=== PATIENT | female | born 1935 | race Two or more races ===

== ENCOUNTER → 2024-06-09 | Outpatient (CLI) | payer MEDICARE, SELFPAY ==
[2024-06-09 12:57] LABS: Glucose Estimated Average 120 mg/dL (80-131); Hemoglobin A1C 5.8 % Hgb (4.8-6.0)
[2024-06-09 13:08] LABS: Thyroid Stimulating Hormone 3.98 uIU/mL (0.55-4.78)
== END | disposition home or self-care (01) ==
LOC: COPL 11:58
PROVIDERS: PCP Internal Medicine; Referring Provider Internal Medicine; Visit Provider Internal Medicine
DX: E03.9 Hypothyroidism, unspecified (principal); E11.9 Type 2 diabetes mellitus without complications
CPT/HCPCS: 36415; 83036; 84443

== ENCOUNTER 2024-07-22 09:47 | Emergency (ER) | payer MEDICARE, SELFPAY ==
[2024-07-22 10:03] VITALS: BP 171/65; PULSE 63; RESP 16; TEMP 36.7; O2SAT 100; BMI 18.8
--- NOTE | 2024-07-22 10:05 | XR_ITS ---
Examination: Abdomen sonogram, Limited Date and time of exam: July 22, 2024 1155 hours INDICATIONS: Onset right upper abdominal pain beginning one week ago Technique: Real-time burks scale transabdominal sonographic images of the upper abdomen obtained. Findings: Normal gallbladder Normal common bile duct 0.1 cm Pancreatic head 1.1 cm Liver 11.3 cm fatty infiltration irregular contour no focal liver lesions Normal hepatopedal portal venous flow Patent IVC IMPRESSION: Normal gallbladder Primary hepatocellular disease fatty liver
--- NOTE | 2024-07-22 10:05 | EKG_ITS ---
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
--- NOTE | 2024-07-22 10:31 | PC.NURSE ---
Pt coming in from ED lobby with c/o RUQ abd pain with left lower and upper ABD pain associated with nausea x1 week. Pt denies any vomiting with reports decreased appetite. Pt laying on bed, A&Ox4, GCS 15. Pt connected to monitors at this time.
[2024-07-22 10:46] LABS: Basophils % (Auto) 1 % (0-2.5); Eosinophils # (Auto) 0.1 Thou/mm3 (0.0-0.5); Eosinophils % (Auto) 1 % (0-10); Hematocrit 34.5 % (36.0-46.0); Hemoglobin 11.7 g/dL (12.0-16.0); Immature Granulocytes % (Auto) 0 % (0-0); Immature Granulocytes Auto 0.02 Thou/mm3 (0.00-0.00); Lymphocytes # (Auto) 1.5 Thou/mm3 (1.0-4.8); Lymphocytes % (Auto) 30 % (10-50); Mean Corpuscular HGB Conc 33.9 g/dl (31.0-37.0); Mean Corpuscular Hemoglobin 30.8 pg (25.0-35.0); Mean Corpuscular Volume 91 fL (80-100); Monocytes # (Auto) 0.5 Thou/mm3 (0.0-0.8); Monocytes % (Auto) 10 % (0-12); Neutrophils # (Auto) 2.9 Thou/mm3 (1.8-7.7); Neutrophils % (Auto) 58 % (37-80); Nucleated Red Blood Cell % 0 /100 WBC (0); Platelet Count 163 Thou/mm3 (140-440); RDW Standard Deviation 48.4 fL (36.4-46.3); White Blood Count 4.9 Thou/mm3 (3.6-11.0)
[2024-07-22 11:04] VITALS: BP 153/69; PULSE 62; RESP 15; TEMP 36.8; O2SAT 100
[2024-07-22 11:13] LABS: Alanine Aminotransferase 28 U/L (10-49); Albumin, Serum 4.6 gm/dL (3.4-4.8); Albumin/Globulin Ratio 1.4 (1.2-2.2); Alkaline Phosphatase 90 U/L (46-116); Anion Gap 7 (7-16); Aspartate Amino Transferase 34 U/L (0-34); BUN/Creatinine Ratio 26 Ratio (12-20); Bilirubin,Total 0.6 mg/dL (0.3-1.2); Blood Urea Nitrogen 26 mg/dL (9-23); Calcium 9.9 mg/dL (8.3-10.6); Calcium (Corrected) 9.9 mg/dL (8.5-10.1); Carbon Dioxide 25.9 mMol/L (20.0-31.0); Chloride 98 mMol/L (98-107); Estimated Creatinine Clearance 25.5 mL/min (>60); Globulin 3.4 gm/dL (2.3-3.5); Glucose 97 mg/dL (74-106); Lipase 48 U/L (12-53); Osmolality,Calculated 267 (275-295); Potassium 4.4 mMol/L (3.4-5.1); Procalcitonin 0.38 ng/ml (0.0-0.49); Sodium 131 mMol/L (136-145); Troponin I < 0.020 ng/mL (0.0-0.045); eGFR 54 See Note
--- NOTE | 2024-07-22 11:19 | PD.EDRME ---
Rapid Medical Screening Exam RME Arrival date/time: 07/22/24 09:47 Chief Complaint: Abdominal Pain Time Seen by Provider: 07/22/24 09:48 Vital signs: Vital Signs Temperature 98.1 F 07/22/24 10:03 Pulse Rate 63 07/22/24 10:03 Respiratory Rate 16 07/22/24 10:03 Blood Pressure 171/65 H 07/22/24 10:03 Pulse Oximetry (%) 100 07/22/24 10:03 Oxygen Delivery Method Room Air 07/22/24 10:03
--- NOTE | 2024-07-22 11:36 | PD.EDABDPN ---
ED Abdominal Pain RME/HPI General Chief Complaint: Abdominal Pain Stated complaint: RUQ ABD PAIN, NAUSEA, FEVER Time seen by provider: 07/22/24 09:48 Arrival date/time: 07/22/24 09:47 RME / HPI RME / HPI narrative: 07/22/24 09:47 DR. GÓMEZ MAIN ED EVALUATION: 89 year old female presents to the ED for evaluation of abdominal pain beginning last night at 09:30pm. Described as colicky in sensation that is located most to the right upper quadrant, rating as moderate-severe. Accompanied by nausea. Denies fevers, blood in stool, diarrhea, constipation, or urinary symptoms. No known modifying factors reported. Related Data Home Medications ?Medication ?Instructions ?Recorded ?Confirmed nebivolol 10 mg tablet (Bystolic) 10 mg PO QDAY 03/21/19 07/22/24 amlodipine 2.5 mg tablet 2.5 mg PO QDAY 10/28/19 07/22/24 fluticasone 250 mcg-salmeterol 50 1 inh inhalation QDAY 10/28/19 07/22/24 mcg/dose blistr powdr for inhalation (Wixela Inhub) gabapentin 100 mg capsule 100 mg PO QDAY 10/28/19 07/22/24 omeprazole 20 mg capsule,delayed 20 mg PO QDAY 10/28/19 07/22/24 release budesonide-formoterol HFA 80 1 inh inhalation BID 06/11/22 07/22/24 mcg-4.5 mcg/actuation aerosol inhaler (Symbicort) famotidine 20 mg tablet (Pepcid) 20 mg PO QDAY 06/11/22 07/22/24 hydrocortisone 1 % topical cream 1 applic topical BID PRN Itching 06/11/22 07/22/24 (Preparation H Hydrocortisone) levothyroxine 25 mcg tablet 25 mcg PO QDAY 07/22/24 07/22/24 naltrexone 1.5 mg capsule 2 mg PO QPM 07/22/24 07/22/24 Previous Rx's ?Medication ?Instructions ?Recorded pantoprazole 40 mg tablet,delayed 40 mg PO QDAY #30 tabs 10/28/19 release (Protonix) Allergies Allergy/AdvReac Type Severity Reaction Status Date / Time Penicillins Allergy Severe PATIENT Verified 07/22/24 14:49 DOEN'T KNOW Sulfa (Sulfonamide Allergy Severe Rash Verified 07/22/24 14:49 Antibiotics) aspirin Allergy Verified 07/22/24 14:49 Review of Systems Review of Systems Narrative Review of Systems: Constitutional: DENIES; Fevers Eyes: DENIES; Loss of vision Head/Ear/Nose: DENIES; Loss of hearing Throat: DENIES; Dysphagia Cardiovascular: DENIES; Chest pain, dyspnea or syncope Respiratory: DENIES; Shortness of breath Gastrointestinal: SEE HPI +abd pain, nausea DENIES; Rectal bleeding or melena. Genitourinary: DENIES; Dysuria (painful or difficult urination) Musculoskeletal: DENIES; Arthralgia (pain in a joint),; Skin: DENIES; Rash Neurological: DENIES; Loss of function or movement Psychiatric: DENIES; recent major life stressor, emotional problem, illicit drug use or abuse Endocrinology: DENIES; Weight change Hematologic/Lymphatic: DENIES; Abnormal bruising Allergic/Immunologic: DENIES; Urticaria (hives) Past Medical History Past Medical History CARDIAC: Positive Cardiac Disorders and Hypertension RESPIRATORY: Positive Asthma GASTROINTESTINAL: Positive Gastroesophageal Reflux Disease GENITOURINARY: Positive Genitourinary Disorders (Nocturia (over active bladder)) MUSCULOSKELETAL: Positive Musculoskeletal Disorders (spinal stenosis) ENDOCRINE: Positive Endocrine Disorders and Hypothyroidism Surgical History SURGICAL: Positive Joint Replacement, Knee Sx (right& left knee,05/2009 foraminotomy decompression l4-l5 08/2015) and of Back Surgery (laminectomy Cervical,4,5,6, 05/2014) Social History SMOKING STATUS: Never smoker SUBSTANCE USE: does not use ED Exam Narrative Physical exam: Physical Exam: General: The vital signs were reviewed. Small stature female the patient is non-toxic, in no apparent distress and appears healthy with a patent airway, no respiratory distress and has no apparent circulatory problems. Head & Scalp: Normocephalic, atraumatic. Face: Appears normal and is without lesions, deformity. Ears: Left external pinna appears normal. Right external pinna appears normal. Eyes: The sclera is anicteric. No obvious photophobia. The Left and Right Orbit/Lid/Conjunctiva appears normal without swelling, discoloration or injection. Nose: The nose is without deformity, discharge or tenderness; Throat: Appears normal. The mucous membranes are pink and moist without exudates, redness or mass seen. The tongue appears normal. Neck: The neck is supple and no apparent mass or adenopathy. Chest: The chest wall is normal in size and symmetry and has no chest wall tenderness or crepitus. The patient displays normal ventilator effort without retractions, accessory muscle use and has adequate air movement bilaterally with no wheezes and no rales. Cardiovascular: Regular rate and rhythm; No murmurs, rubs, or gallops; Gastrointestinal: The abdomen appears normal. No obvious hernias or mass. The abdomen has right upper quadrant tenderness and right upper lateral margin tenderness where a segment of the ascending colon appears to be palpable and tender.. Is soft and benign, non-distended, with no pain, no guarding and no rebound tenderness. Bowel sounds are present and normal sounding. No CVA tenderness. Genitourinary: Back/Spine: Thin body no obvious pain Extremities/Musculoskeletal/lymphatic: The bilateral upper and lower extremities are warm. There is no evidence of arterial insufficiency. There is no evidence of venous insufficiency/edema. The patient spontaneously moves bilateral upper and lower extremities with no pain and no limitation of movement. There is no apparent, injury or trauma. Skin: The skin is warm, dry and intact. No rashes. No petechia. No purpura. No abnormal bruising. The color is appropriate with no cyanosis. Mental status/Psychiatric: Mental status is appropriate for age. The patient has no apparent delusions, visual hallucinations, no apparent audible hallucinations. The patient has no apparent suicidal thoughts/ideation and no apparent homicidal thoughts/ideation. Neurological: The patient is awake, alert, interactive, cordial, cooperative and is oriented to name and situation. The patient follows commands and answers historical question with no impairment. There is no visual disturbance apparent. The pupils are equal and reactive bilaterally with normal eye movements and no diplopia The bilateral upper and lower extremities have normal strength, normal range of motion and normal functioning. The gait, station and balance appear to be baseline with no acute change Course Quality Measures none Orders Category Date Time Status CT Screening NOW Care 07/22/24 14:35 Active EKG (ED ONLY) *Do not use* NOW Care 07/22/24 10:[address] chest abdomen pelvis w Stat Exams 07/22/24 14:35 Completed EKG (ED Only) Stat Exams 07/22/24 10:05 Draft US gall bladder Stat Exams 07/22/24 10:05 Completed Blood Culture (Lab) Stat Lab 07/22/24 10:34 Received CBC Stat Lab 07/22/24 10:28 Completed Comprehensive Metabolic Panel Stat Lab 07/22/24 10:28 Completed Lactic Acid [Lactate (Lactic Acid)] Stat Lab 07/22/24 10:28 Completed Lipase Stat Lab 07/22/24 10:28 Completed Procalcitonin Stat Lab 07/22/24 10:28 Completed Troponin I Stat Lab 07/22/24 10:28 Completed UA, C/S IF [Urinalysis, C/S if Indicated] Stat Lab 07/22/24 12:25 Completed Sodium Chloride 0.9% 1000 ml [Ns] 1,000 ml Med 07/22/24 14:35 Active IV 125 mls/hr Sodium Chloride 0.9% 500 ml [Ns] 500 ml Med 07/22/24 14:35 Discontinued IV 999 mls/hr Vital Signs Vital signs: Vital Signs Temperature 98.1 F 07/22/24 10:03 Pulse Rate 63 07/22/24 10:03 Respiratory Rate 16 07/22/24 10:03 Blood Pressure 171/65 H 07/22/24 10:03 Pulse Oximetry (%) 100 07/22/24 10:03 Oxygen Delivery Method Room Air 07/22/24 10:03 Pulse ox is 100% on room air which is adequate. Abdominal Pain MDM MDM Narrative MDM Narrative:: Elvi Verma am scribing for and in the presence of Dr. Gómez. Patient 89-year-old who presents with started last night with no previous history of similar. She is a small habitus female in usual health. Initial evaluation shows a white count of 4.9 hemoglobin 11.7 sodium 131 potassium 4.4 chloride 98 CO2 25.9 BUN 26 creatinine 1.0 with consistent some mild prerenal azotemia. Lactic acid was 1 calcium was 9.9 AST ALT were within normal limits alkaline phos was normal troponin was negative lipase was 48 urinalysis was entirely unremarkable. Ultrasound was done which is entirely normal with no cholelithiasis seen. On reevaluation patient has persistent right upper or right upper lateral ascending colon tenderness. Will get a CT of the chest and abdomen to further evaluate this. CT scan of the chest abdomen pelvis revealed no acute problem no gallstones were seen hepatic ducts are within normal limits the chest unremarkable. 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 No pneumonia seen with no other acute is found. Urinalysis came back unremarkable. There is no blood there is no infection Patient came back walk to the bathroom without any symptoms and is feeling much better her son and [id number] are physicians here in town. They were advised to return if getting worse in any way. Patient data External records reviewed:: [facility] previous records (I reviewed ED visit on 10/28/2019) Clinical information provided by:: patient Social determinants that could affect healthcare access:: none Patient has the following chronic illnesses:: hypertension, asthma, hypothyroidism, GERD How is presenting disease/condition affected by chronic disease/condition?: uneffected by Evaluation data The following diagnostics were reviewed and interpreted by me:: lab results, radiology exam(s) and EKG tracing(s) (Sinus rhythm, rate 61, no STEMI. ) Lab and/or radiology exams considered but not ordered:: None Interpretation Summary: Ordering Physician: Raquel KIRBY)Rishabh NP Date of Service: 07/22/24 Procedure(s): US gall bladder Accession Number(s): [id number] cc: Raquel IKRBY)Rishabh NP; Anabel Carpio MD; Kushal Hill MD~ Examination: Abdomen sonogram, Limited Date and time of exam: July 22, 2024 1155 hours INDICATIONS: Onset right upper abdominal pain beginning one week ago Technique: Real-time burks scale transabdominal sonographic images of the upper abdomen obtained. Findings: Normal gallbladder Normal common bile duct 0.1 cm Pancreatic head 1.1 cm Liver 11.3 cm fatty infiltration irregular contour no focal liver lesions Normal hepatopedal portal venous flow Patent IVC IMPRESSION: Normal gallbladder Primary hepatocellular disease fatty liver Dictated By: Kushal Hill MD Signed By: <Electronically signed by Kushal Hill MD in OV> 07/22/24 1227 Ordering Physician: Madhav Gómez MD Date of Service: 07/22/24 Procedure(s): CT chest abdomen pelvis w Accession Number(s): [id number] cc: Anabel Carpio MD; Madhav Gómez MD; Kushal Hill MD~ Examination: CT chest with intravenous contrast CT abdomen with intravenous contrast CT pelvis with intravenous contrast 2-D coronal and sagittal reconstructions Time of exam: July 22, 2024 1531 hours INDICATIONS: Right upper abdominal pain nausea and fevers today COMPARISON: August 14, 2016 CTDI: vol (mGy) : 5.31 DLP: (mGycm): 351 Technique: Multiple axial images of the chest, abdomen and pelvis with intravenous contrast, 3.0 mm slice thickness. Images obtained post intravenous injection Isovue 370 60 cc. 2-D sagittal and coronal reconstructions. Low dose protocols were performed. One or more of the following dose reduction techniques were used; automated exposure control, adjustment of the mA and/or KV according to patient size, use of iterative reconstruction technique. 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 dome of the liver on the right with more caudad small liver cysts 5 mm No gallstones identified Gallbladder wall does not appear thickened No extrahepatic biliary tract dilatation Pancreas is not enlarged Abdominal aorta normal size 2 mm nonobstructing left renal calculus Mild to moderate bilateral renal parenchymal scar formation No hydronephrosis or ureteral calculi Abdominal aorta is normal in size and configuration No CT findings of appendicitis Scattered colonic diverticulosis Mild nonspecific wall thickening involving the sigmoid colon Mild to moderate free fluid in the pelvis Severe osteopenia IMPRESSION: No pneumonia or pulmonary edema or pleural disease Negative for cholelithiasis, negative for cholecystitis 2 mm nonobstructing left renal calculus, mild to moderate bilateral renal parenchymal scar formation No CT findings of appendicitis or diverticulitis Nonspecific colitis, mild involving sigmoid colon Mild to moderate free fluid in the pelvis, clinical correlation advised No extrahepatic Dictated By: Kushal Hill MD Signed By: <Electronically signed by Kushal Hill MD in OV> 07/22/24 8741 Medications / Prescriptions Medications or Prescriptions considered but not ordered:: None Medication administrations:: Medication Administration History Sodium Chloride (Ns) 1,000 mls @ 125 mls/hr IV .Q8H ONE Stop: 07/22/24 22:34 Discontinued Medications Sodium Chloride (Ns) 500 mls @ 999 mls/hr IV .Q31M ONE Stop: 07/22/24 15:05 Last Infusion: 07/22/24 16:08 Dose: 0 mls/hr Documented By: Admin: 07/22/24 15:52 Dose: 999 mls/hr Documented By: ROBI See above Consultations Consultation(s) initiated? (list below): No Diagnosis Differential diagnosis abdominal pain: abdominal pain, calculus of kidney and other (Cholelithiasis) Most likely diagnosis given after review of the tests above:: Abdominal pain, acute, right upper quadrant Admission Indicated Admission indicated?: not indicated Admission Request Was there a request for admission?: No Disposition Plan Disposition Plan: Discharge Discharge Attestation Discharge Attestation: The patient and all family members were given an opportunity to ask questions and understood the discharge instructions. Discharge instructions specifically effects, indications for sooner follow up or return to the emergency department, and the expected course of current diagnosis. Patient condition: Stable Discharge Plan Plan Patient Disposition: HOME (Self Care) Prescriptions/Referrals Prescriptions/Med Rec: No Action budesonide-formoterol [Symbicort] 80-4.5 mcg/actuation HFA aerosol inhaler 1 inh inhalation BID famotidine [Pepcid] 20 mg tablet 20 mg PO QDAY hydrocortisone [Preparation H Hydrocortisone] 1 % cream 1 applic topical BID PRN (Reason: Itching) nebivolol [Bystolic] 10 mg Tablet 10 mg PO QDAY fluticasone propion-salmeterol [Wixela Inhub] 250-50 mcg/dose Blister With Device 1 inh INHALATION QDAY amlodipine 2.5 mg Tablet 2.5 mg PO QDAY omeprazole 20 mg Capsule,Delayed Release(Dr/Ec) 20 mg PO QDAY gabapentin 100 mg Capsule 100 mg PO QDAY pantoprazole [Protonix] 40 mg tablet,delayed release (DR/EC) 40 mg PO QDAY Qty: 30 0RF levothyroxine 25 mcg Tablet 25 mcg PO QDAY naltrexone 1.5 mg Capsule 2 mg PO QPM Referrals: Anabel Carpio MD [Primary Care Provider] - In 1 week Problem List Clinical Impression: Abdominal pain, acute, right upper quadrant, Abdominal pain Patient/Caregiver Discharge Instructions Additional Instructions: As we discussed please return if getting worse in any way. Your CT and ultrasound today were unremarkable for any acute pathology. Your laboratory studies were unremarkable. Follow-up with your doctor in 2 days for recheck. Print Language: Turkish Stand Alone Forms: Isabel Award Info., Patient Portal Info Letter
[2024-07-22 12:37] LABS: Collection Type, Urine Clean Catch; Squamous Epithelial Cell,Urine 0 /hpf (0-5)
[2024-07-22 12:44] LABS: Bilirubin,Urine Negative (Negative); Blood,Urine Negative (Negative); Clarity,Urine Clear (Clear/Hazy); Color,Urine Colorless (Lt Yel-Yel); Culture Indicated,Urine Not Indicated; Glucose, Urine Negative (Negative); Ketones,Urine Negative (Negative); Leukocyte Esterase,Urine Negative (Negative); Nitrite,Urine Negative (Negative); Protein,Urine Negative (Neg - Trace); RBC,Urine < 1 /hpf (0-3); Specific Gravity,Urine 1.006 (1.001-1.035); Urobilinogen,Urine Negative mg/dL (0.0-1.0); WBC,Urine 1 /hpf (0-5)
[2024-07-22 13:00] VITALS: BP 158/64; PULSE 62; RESP 15; TEMP 36.4; O2SAT 96
--- NOTE | 2024-07-22 14:35 | XR_ITS ---
Examination: CT chest with intravenous contrast CT abdomen with intravenous contrast CT pelvis with intravenous contrast 2-D coronal and sagittal reconstructions Time of exam: July 22, 2024 1531 hours INDICATIONS: Right upper abdominal pain nausea and fevers today COMPARISON: August 14, 2016 CTDI: vol (mGy) : 5.31 DLP: (mGycm): 351 Technique: Multiple axial images of the chest, abdomen and pelvis with intravenous contrast, 3.0 mm slice thickness. Images obtained post intravenous injection Isovue 370 60 cc. 2-D sagittal and coronal reconstructions. Low dose protocols were performed. One or more of the following dose reduction techniques were used; automated exposure control, adjustment of the mA and/or KV according to patient size, use of iterative reconstruction technique. 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 dome of the liver on the right with more caudad small liver cysts 5 mm No gallstones identified Gallbladder wall does not appear thickened No extrahepatic biliary tract dilatation Pancreas is not enlarged Abdominal aorta normal size 2 mm nonobstructing left renal calculus Mild to moderate bilateral renal parenchymal scar formation No hydronephrosis or ureteral calculi Abdominal aorta is normal in size and configuration No CT findings of appendicitis Scattered colonic diverticulosis Mild nonspecific wall thickening involving the sigmoid colon Mild to moderate free fluid in the pelvis Severe osteopenia IMPRESSION: No pneumonia or pulmonary edema or pleural disease Negative for cholelithiasis, negative for cholecystitis 2 mm nonobstructing left renal calculus, mild to moderate bilateral renal parenchymal scar formation No CT findings of appendicitis or diverticulitis Nonspecific colitis, mild involving sigmoid colon Mild to moderate free fluid in the pelvis, clinical correlation advised No extrahepatic
[2024-07-22 15:00] VITALS: BP 174/74; PULSE 76; RESP 20; TEMP 36.5; O2SAT 99
--- NOTE | 2024-07-22 15:28 | PC.NURSE ---
Paatient gone to CT.
[2024-07-22] MEDS: SODIUM CHLORIDE 0.9% 500 ML 500 ML 999 ML IV (15:52)
[2024-07-22 16:16] VITALS: BP 170/83; PULSE 69; RESP 20; TEMP 36.6; O2SAT 98
[2024-07-22 17:12] VITALS: BP 176/72; PULSE 66; RESP 17; TEMP 36.3; O2SAT 98
--- NOTE | 2024-07-22 17:27 | PC.LAC ---
Dr. Barlow made aware of pt's BP prior to discharge; per Dr. Barlow, ok for discharge at this time.
== END 2024-07-22 17:31 | disposition home or self-care (01) ==
PROVIDERS: Nurse Practitioner Primary Care; Emergency Provider Emergency Medicine; PCP Internal Medicine
DX: N20.0 Calculus of kidney (principal); K52.9 Noninfective gastroenteritis and colitis, unspecified; K76.0 Fatty (change of) liver, not elsewhere classified; I10 Essential (primary) hypertension
CPT/HCPCS: 36415; 71260; 74177; 76705; 80053; 81001; 83605; 83690; 84145; 84484; 85025; 87040; 93005; 99285; A4649; J7040; Q9967